=== PATIENT | female | born 1950 | race Caucasian/White ===

== ENCOUNTER → 2023-08-16 13:43 | Outpatient (REF) | payer MEDICARE, OTHER, SELFPAY | LOC: WDC 13:43 | PROVIDERS: ATTENDING PHYSICIAN Physician Assistant Medical; FAMILY PHYSICIAN Internal Medicine | DX: M81.0 Age-related osteoporosis without current pathological fracture (principal); Z12.31 Encounter for screening mammogram for malignant neoplasm of breast | CPT/HCPCS: 77063; 77067; 77080 ==

== ENCOUNTER → 2024-01-03 11:18 | Outpatient (REF) | payer MEDICARE, OTHER, SELFPAY | LOC: RAD 11:18 | PROVIDERS: ATTENDING PHYSICIAN Internal Medicine Rheumatology; FAMILY PHYSICIAN Internal Medicine | DX: M81.0 Age-related osteoporosis without current pathological fracture (principal); R29.890 Loss of height | CPT/HCPCS: 72072; 72100 ==

== ENCOUNTER 2024-06-06 18:30 | Emergency (ER) | payer MEDICARE, OTHER, SELFPAY ==
[2024-06-06 18:31] VITALS: BMI 29.5
[2024-06-06 18:38] VITALS: BP 193/125
[2024-06-06 18:58] LABS: % Basophils 0.7 % (0-2); % Eosinophils 1.8 % (0-6); % Immature Granulocytes 0.3 % (0-0.5); % Lymphocytes 35.5 % (20.5-51.1); % Monocytes 7.4 % (1.7-9.3); % Neutrophils 54.3 % (42.2-75.2); Absolute Basophils 0.1 10^3/uL (0-0.2); Absolute Eosinophils 0.2 10^3/uL (0-0.7); Absolute Lymphocytes 3.3 10^3/uL (1.2-3.4); Absolute Monocytes 0.7 10^3/uL (0.1-0.6); Absolute Neutrophils 5.1 10^3/uL (1.4-6.5); Hematocrit 40.7 % (37.0-47.0); Hemoglobin 13.4 g/dL (12.0-16.0); Mean Corp Hgb Conc. 32.9 g/dL (33.0-37.0); Mean Corpuscular Hgb 30.4 pg (27.0-31.0); Mean Corpuscular Volume 92.3 fL (81.0-99.0); Mean Platelet Volume 8.8 fL (7.4-10.4); Nucleated Red Blood Cells % 0 %; Platelet Count 321 10^3/uL (130-400); Red Blood Cell Count 4.41 10^6/uL (4.20-5.40); Red Cell Dist. Width 12.7 % (11.5-14.5); White Blood Cell Count 9.3 10^3/uL (4.8-10.8)
[2024-06-06 19:13] LABS: ALT (SGPT) 22 U/L (0-35); AST (SGOT) 25 U/L (14-36); Albumin 4.6 g/dl (3.5-5.0); Alkaline Phosphatase 69 U/L (38-126); Blood Urea Nitrogen 17 mg/dl (7-17); Calcium 9.3 mg/dl (8.4-10.2); Carbon Dioxide 26 mmol/L (22-30); Chloride 97 mmol/L (98-107); Glucose 109 mg/dl (70-99); Potassium 3.8 mmol/L (3.5-5.1); Sodium 133 mmol/L (135-145); Total Bilirubin 0.3 mg/dl (0.2-1.3); Total Protein 7.1 g/dl (6.3-8.2); eGFR > 60.00
--- NOTE | 2024-06-06 22:22 | ED.GENMED ---
History of Present Illness
<KINJAL Nuñez - Last Filed: 06/06/24 22:49>
General
Chief Complaint: Allergic Reaction
Source: patient
Time Seen by Provider: 06/06/24 22:07
Nursing documentation reviewed up to this point in time: agreed with
History of Present Illness
History of Present Illness:
Pt is a 73 yo F who presents to the emergency department via EMS for an allergic reaction with a rash, chills, headache, and elevated blood pressure. Pt states that she was on Evenity from her end lathe operator and started it in January. She explains
that it is a monthly medication, and when she first started it she noticed having a headache and a small rash on the back of her hands. She states that her last dose of the medication was in March. Pt states that she has continued to have rash
that is now on her face, back of hands, and upper back. Pt states that the rash is hot and itchy. She states that she has been taking Benadryl, Zyrtec, and Advil. Her last dose of Benadryl and Advil were at 5pm tonight. Pt states that he Benadryl
helps, but makes her very tired. Pt states that her headache is located in the front and on top of her head and is 5/10. Pt also reports that her blood pressure has been elevated recently. She states she is complaint with her blood pressure
medication and that her pressure typically is on the lower side. Pt denies shortness of breath, trouble breathing, N/V, chest pain, or anything like this happening before.
Pt states she came in to the ED tonight because she doesn't feel right and tonight is the worse the rash and headache have been and she is now having chills. Pt states that she has been to her PCP, end lathe operator, heel reducer, and urgent care for
her symptoms, and that she was advised to take Benadryl.
Review of Systems
<KINJAL Nuñez - Last Filed: 06/06/24 22:49>
Review of Systems
Allergies reviewed?: Yes
Constitutional: Reports chills
EENT: Reports no symptoms
Respiratory: Reports no symptoms
Cardiac: Reports no symptoms
ABD/GI: Reports no symptoms
: Reports no symptoms
Musculoskeletal: Reports no symptoms
Skin: Reports itching and rash
Neurological: Reports headache
Phy Exam
<KINJAL Nuñez - Last Filed: 06/06/24 22:49>
General Physical Exam
General Presentation: no apparent distress
General age: appears stated age
General Skin: warm and feels hot
General Habitus: normal
General Mental: alert
General Hydration: appears well hydrated
Cardiovascular Exam
Cardiovascular Exam: regular rate/rhythm
Pulmonary Exam
Pulmonary Exam: lungs clear
Skin Exam
Skin Exam: warm/dry and erythema (Erythematous rash noted on patient's face, dorsum of b/l hands, and upper back. Areas are warm to touch)
Course
<KINJAL Nuñez - Last Filed: 06/06/24 22:49>
Orders/Labs/Results
Orders:
Orders
06/06/24 18:41
Electrocardiogram (*1) Urgent
Reason for Study: Chest Pain
EKG- Treatment ONCE
06/06/24 18:50
Complete Blood Count/With Diff Urgent
Comprehensive Metabolic Panel Urgent
06/06/24 23:15
Prednisone [Deltasone] 40 mg PO NOW STA
Abnormal Lab Results
06/06/24
18:50
MCHC 32.9 L g/dL
(33.0-37.0)
Absolute Monos (auto) 0.7 H 10^3/uL
(0.1-0.6)
Sodium 133 L mmol/L
(135-145)
Chloride 97 L mmol/L
(98-107)
Glucose 109 H mg/dl
(70-99)
06/06/24 18:50
06/06/24 18:50
Vital Signs
Initial and Last Documented VS:
Initial Vital Signs
Temp Pulse Resp BP Pulse Ox
99.9 F 102 24 193/125 98
06/06/24 18:38 06/06/24 18:38 06/06/24 18:38 06/06/24 18:38 06/06/24 18:38
Last Documented Vital Signs
Temp Pulse Resp BP Pulse Ox
98.5 F 98 16 130/98 94
06/06/24 23:20 06/06/24 21:59 06/06/24 21:59 06/06/24 23:20 06/06/24 21:52
<Noemy Torrez, DO - Last Filed: 06/07/24 07:15>
Orders/Labs/Results
Orders:
Orders
06/06/24 18:41
Electrocardiogram (*1) Urgent
Reason for Study: Chest Pain
EKG- Treatment ONCE
06/06/24 18:50
Complete Blood Count/With Diff Urgent
Comprehensive Metabolic Panel Urgent
06/06/24 23:15
Prednisone [Deltasone] 40 mg PO NOW STA
Abnormal Lab Results
06/06/24
18:50
MCHC 32.9 L g/dL
(33.0-37.0)
Absolute Monos (auto) 0.7 H 10^3/uL
(0.1-0.6)
Sodium 133 L mmol/L
(135-145)
Chloride 97 L mmol/L
(98-107)
Glucose 109 H mg/dl
(70-99)
06/06/24 18:50
06/06/24 18:50
Vital Signs
Temp: 98.5 F
Blood pressure: 130/98
Initial and Last Documented VS:
Initial Vital Signs
Temp Pulse Resp BP Pulse Ox
99.9 F 102 24 193/125 98
06/06/24 18:38 06/06/24 18:38 06/06/24 18:38 06/06/24 18:38 06/06/24 18:38
Last Documented Vital Signs
Temp Pulse Resp BP Pulse Ox
98.5 F 98 16 130/98 94
06/06/24 23:20 06/06/24 21:59 06/06/24 21:59 06/06/24 23:20 06/06/24 21:52
<KINJAL Nuñez - Last Filed: 06/06/24 22:49>
MDM/Problems Addressed
Differential Diagnosis Includes:
Rash, allergic reaction
<KINJAL Nuñez - Last Filed: 06/06/24 22:49>
*Critical Care Note
Total Time (30-74mins, 75-104mins- exclusive of procedures): Not Applicable
ED Attending Note
<KINJAL Nuñez - Last Filed: 06/06/24 22:49>
-
Portions of this chart may have been created with voice recognition software.� Occasional wrong word or��sound alike� substitutions may have occurred due to the inherent limitations of voice recognition software.
<Noemy Torrez DO - Last Filed: 06/07/24 07:15>
ED Attending Note
Patient seen and examined by attending physician: Yes
I performed the substantive portion of visit, reviewed & personally made and approve the management plan that is documented in note by myself or TAMANNA.: Yes
ED Attending Note:
This is a 73-year-old woman with history of hypertension, hyperlipidemia, osteoporosis who was started on monthly injections of Evenity January of this year. Evenity was eventually discontinued in March due to persistent headaches, overall not
feeling well as well as persistent dry inflamed rash of her face and dorsal hands. Despite discontinuing Evenity in March, rash has persisted. She has been evaluated by end lathe operator, Dr. Rogers, evaluated by heel reducer as well as PCP and
urgent care. She was initially treated with topical steroid creams without improvement. She takes Zyrtec twice daily and has been taking Benadryl sporadically for itchy dry red facial and dorsal hand rash.
She has not had a fever nor chills. She has not had a cough nor shortness of breath. No abdominal pain, no nausea or vomiting, no diarrhea or constipation.
Currently being worked up for autoimmune disorder such as discoid lupus, SLE. Thus far no definitive diagnosis.
She admits to frustration with ongoing rash. She plans to travel to [place] with her in August.
She has appointment with heel reducer next week for skin biopsy. She had additional blood work drawn yesterday by rheumatology.
GENERAL: 73-year-old woman appears her stated age, bright and alert, initially mildly anxious but easily communicative and towards the end of our initial evaluation she is bright and alert, pleasant, quite jovial.
EYE: pupils equal and reactive. anicteric
NECK: Supple, nontender, no meningismus, no significant adenopathy.
ENT: posterior pharynx is clear, oral mucosa is moist. TM clear b/l, nares patent.
CARDIAC: Regular rate and rhythm. no murmur.
LUNGS: Clear breath sounds bilaterally, no acute respiratory distress, no wheezes/rales/rhonchi
ABDOMEN: Soft, nondistended, without focal tenderness, no r/g, no cvat. normoactive BS.
NEUROLOGICAL: Alert and oriented x3, no focal neuro deficits. Gait is steady.
SKIN: Warm and dry, normal color, there is an erythematous dry scaly rash to cheeks and forehead. Mildly dry upper eyelids. There is mildly dry scaly rash to bilateral dorsal hands.
MUSCULOSKELETAL: No C/C/E. peripheral pulses are full and equal b/l. No palpable tenderness.
PSYCH: Normal and appropriate interaction.
Patient presents with ongoing inflammatory dermatitis of face and dorsal hands. Following with multiple specialist including rheumatology, dermatology, PCP.
There is no evidence of secondary infection. No angioedema.
Labs are unremarkable.
Recommend trial of a short course of prednisone. Continue twice daily Zyrtec but recommend she hold off on additional Benadryl.
Continue follow-up with heel reducer and end lathe operator.
Discharge Plan
Departure
Patient Disposition: Home (Routine Discharge)
Date of Disposition: 06/06/24
Time of Disposition: 23:17
Patient with high blood pressure during this ER visit?: No
Condition: Good
Discharge Problem:
chronic dermatitis of face/hands
Instructions: Skin Rash ED
Prescriptions:
New
prednisone 10 mg Tablet
See Rx Instructions .ROUTE .COMPLEX Qty: 30 0RF
Rx Instructions:
Take By Mouth:
40 mg daily x3 days, 30 mg daily x3 days,
20 mg daily x3 days, 10 mg daily x3 days.
Referrals:
Rene Gill MD [Family Provider] - Keep scheduled appt
Activity Restrictions/Additional Instructions:
Continue to follow-up with your end lathe operator, heel reducer as well as family physician as already scheduled.
Continue twice daily emollient moisturizer.
Continue twice daily Zyrtec but I want to avoid Benadryl.
I have added a short tapering course of prednisone to hopefully help with inflammation as well as itch.
Interventions
Interventions:
*Risk Screen - Suicide Last Done: 06/06/24 18:34
*General Assessment Last Done: 06/06/24 18:34
*Neglect/Abuse Screening Last Done: 06/06/24 18:34
*ED COVID-19 Vaccine History Last Done: 06/06/24 21:52
*Nursing Disposition Last Done: 06/06/24 23:27
ED- Cardiac Assessment Last Done: 06/06/24 21:52
ED- Pulmonary Assessment Last Done: 06/06/24 21:52
ED-Skin Assessment Last Done: 06/06/24 21:52
Discharge Date and Time
Discharge Date/Time: 06/06/24 23:35
Print Language: SCOTTISH
[2024-06-06 22:53] VITALS: BP 188/129
[2024-06-06 22:54] VITALS: BP 171/119
[2024-06-06 23:00] VITALS: BP 137/120
[2024-06-06] MEDS: DELTASONE 40 MG PO (23:24)
== END 2024-06-06 23:35 | disposition home or self-care (01) ==
LOC: EMR 18:30
PROVIDERS: Physician Assistant; EMERGENCY PHYSICIAN Emergency Medicine; FAMILY PHYSICIAN Internal Medicine
DX: L30.9 Dermatitis, unspecified (principal); I10 Essential (primary) hypertension; E78.5 Hyperlipidemia, unspecified
CPT/HCPCS: 99284; 80053; 85025; 93005

== ENCOUNTER → 2025-01-03 16:31 | Outpatient (REF) | payer MEDICARE, OTHER, SELFPAY | LOC: WDC 16:31 | PROVIDERS: ATTENDING PHYSICIAN Internal Medicine | DX: Z12.31 Encounter for screening mammogram for malignant neoplasm of breast (principal) | CPT/HCPCS: 77063; 77067 ==

== ENCOUNTER 2025-03-05 14:21 | Emergency (ER) | payer MEDICARE, OTHER, SELFPAY ==
[2025-03-05 14:22] VITALS: BP 157/102
--- NOTE | 2025-03-05 16:11 | ED.MUSCINJ ---
HPI-Injury
General
Chief Complaint: Musculo-Skeletal Complaint
Source: patient
Exam Limitations: none
Time Seen by Provider: 03/05/25 16:04
Nursing documentation reviewed up to this point in time: agreed with
History of Present Illness-Injury
Is this injury a work related problem?: No
Is pt an associate of [facility]?: No
Initial Injury comments:
Patient states she was trimming bushes today. She grasped a branch and developd sudden onset of pain. Reports pain to right latera hand. Incident occurred this AM
Past History
Past History
ED Past Medical History: None
Review of Systems
Review of Systems
Allergies reviewed?: Yes
All Other Systems: ROS reviewed and negative except as documented in HPI and ROS
Constitutional: Reports no symptoms
Musculoskeletal: Reports joint pain (pain to right lateral hand)
Skin: Reports no symptoms
Neurological: Reports no symptoms
Psychiatric: Reports no symptoms
Musculoskeletal Injury Exam
Musculoskeletal Injury Exam
Right Lateral Hand:
Pain with Movement?: Moderate
Tender to palpation?: Moderate
Soft tissue swelling?: Mild
External deformity and angulation?: None
Joint effusion?: None
Contusion?: None
Hematoma-local bleeding into tissue?: None
Strain- Sprain- Tear (Connective tissue injury)?: Moderate
Crepitus with movement?: No
Joint instability?: No
Malalignment/deformity?: No
Range of motion: Full
Distal skin color and temperature: normal-warm & good color
Capillary Refill: normal
Normal distal neurovascular exam?: Yes
Peripheral Pulses: radial (right): 3+
Phy Exam
General Physical Exam
General Presentation: well appearing and mild distress
General age: appears stated age
General Skin: warm and dry
General Habitus: normal
General Mental: alert
General Hydration: appears well hydrated
Musculoskeletal Exam
Musculoskeletal Exam: full ROM (No evidence of tendon injury) and neuro vasc intact
Skin Exam
Skin Exam: normal color, warm/dry and no rash
Psychiatric Exam
Psychiatric Exam: normal mood/affect
Injury Course
Orders/Labs/Results
Orders:
Orders
03/05/25 14:24
Wrist, Right 3 Views [CR Wrist - Right Min 3 Views] Urgent
Comment:
Reason For Exam: pain
03/05/25 16:11
Ulnar Gutter Right-Treatment ONCE
*Radiology
Radiology exam reviewed: radiology read reviewed
*Pulse Oximetry
SaO2: 94
Oxygen Mode of Delivery: Room air
Patient hypoxic: no
*Critical Care Note
Total Time (30-74mins, 75-104mins- exclusive of procedures): Not Applicable
Update Note
Update Note:
Patient to ED wtih complaint of right lateral hand pain after grasping a branch earlier today. She has full ROM to hand, tendons intact. Mild swelling at site. Xray neg for fracture Will place in ulnar gutter splint for comfort. Ice, Ibuprofen
prn. She is discharged home. Given number for ortho follow up as needed if symptoms do not improve.
ED Attending Note
-
Portions of this chart may have been created with voice recognition software.� Occasional wrong word or��sound alike� substitutions may have occurred due to the inherent limitations of voice recognition software.
Discharge Plan
Departure
Patient Disposition: Home (Routine Discharge)
Date of Disposition: 03/05/25
Time of Disposition: 16:17
Patient with high blood pressure during this ER visit?: No
Condition: Good
Covid-19: Not Applicable
Discharge Problem:
Hand pain
Instructions: Sprain (DC), Ibuprofen, Using Cold for Pain
Prescriptions:
No Action
prednisone 10 mg Tablet
See Rx Instructions .ROUTE .COMPLEX Qty: 30 0RF
Rx Instructions:
Take By Mouth:
40 mg daily x3 days, 30 mg daily x3 days,
20 mg daily x3 days, 10 mg daily x3 days.
Referrals:
Panchito Merchant MD [Active, Orthopedics]
Referral Note: Follow up if your symptoms do not improve over the next week.
Rene Gill MD [Family Provider, Internal Medicine]
Interventions
Interventions:
*Risk Screen - Suicide Last Done: 03/05/25 14:22
*General Assessment Last Done: 03/05/25 14:22
*Neglect/Abuse Screening Last Done: 03/05/25 16:01
ED-Musculoskeletal Assessment Last Done: 03/05/25 16:01
Discharge Date and Time
Print Language: ETHIOPIAN
[2025-03-05 16:45] VITALS: BP 139/85
== END 2025-03-05 16:45 | disposition home or self-care (01) ==
LOC: EMR 14:21
PROVIDERS: EMERGENCY PHYSICIAN Emergency Medicine; FAMILY PHYSICIAN Internal Medicine
DX: M79.641 Pain in right hand (principal); Y93.H2 Activity, gardening and landscaping
CPT/HCPCS: 99283; 73110

== ENCOUNTER 2025-03-14 06:21 | Day surgery (SDC) | payer MEDICARE, OTHER, SELFPAY | END 2025-03-14 16:20 | disposition home or self-care (01) | LOC: GI 06:21 | PROVIDERS: ATTENDING PHYSICIAN Internal Medicine Gastroenterology | DX: Z12.11 Encounter for screening for malignant neoplasm of colon (principal); R19.5 Other fecal abnormalities; K57.30 Diverticulosis of large intestine without perforation or abscess without bleeding; K64.9 Unspecified hemorrhoids; D12.3 Benign neoplasm of transverse colon; D12.2 Benign neoplasm of ascending colon; K63.5 Polyp of colon; K62.1 Rectal polyp | CPT/HCPCS: 45385; 45380; 88305 ==